=== PATIENT | male | born 1970 | race Caucasian/White ===

== ENCOUNTER 2022-10-16 08:56 | Outpatient (REF) | payer OTHER, SELFPAY ==
[2022-10-16 11:10] LABS: Blood Urea Nitrogen 19 mg/dL (9-16); Estimated Glomerular Filt Rate > 60
== END 2022-10-16 08:57 | disposition home or self-care (01) ==
LOC: HO.LAB 08:56
PROVIDERS: PCP Internal Medicine; Visit Provider Psychiatry & Neurology Neurology
DX: G45.9 Transient cerebral ischemic attack, unspecified (principal)
CPT/HCPCS: 36415; 82565; 84520

== ENCOUNTER 2023-01-09 09:12 | Outpatient (REF) | payer OTHER, SELFPAY ==
[2023-01-09 11:12] LABS: Blood Urea Nitrogen 14 mg/dL (9-16); Estimated Glomerular Filt Rate > 60
== END 2023-01-09 09:13 | disposition home or self-care (01) ==
LOC: HO.LAB 09:12
PROVIDERS: PCP Internal Medicine; Visit Provider Psychiatry & Neurology Neurology
DX: G45.9 Transient cerebral ischemic attack, unspecified (principal)
CPT/HCPCS: 36415; 82565; 84520

== ENCOUNTER 2023-02-06 08:00 | Outpatient (REF) | payer OTHER, SELFPAY ==
--- NOTE | ~2023-02-06 | CT_ITS ---
EXAMINATION: CT ANGIOGRAM HEAD AND NECK CLINICAL INFORMATION: 52-year-old with seizure. COMPARISON: None available. TECHNIQUE: Volumetric CT angiography of the head and neck was performed from the upper thorax to the skull vertex utilizing the bolus intravenous administration of 70 mL of Omnipaque 350 contrast material. 2D multiplanar reconstructions and 3D MIP renderings were performed either on an independent workstation or at the CT console workstation. Precontrast and delayed postcontrast CT imaging of the brain was also performed. The degree of stenosis determined by NASCET criteria. This CT examination was performed using dose optimization techniques as appropriate, variously including the following: *Automated exposure control *Adjustment of mA and/or kV according to patient size (this includes techniques or standardized protocols for targeted exams where dose is matched to indication/reason for exam; i.e. extremities or head) *Use of iterative reconstruction technique DLP: 3027 mGy-cm. FINDINGS: CTA CHEST/NECK: There is a normal three-vessel arch configuration, with normal caliber to the brachiocephalic vessels. There is poor visualization of the proximal vertebral arteries bilaterally due to artifacts and late bolus opacification of the arterial structures. The left vertebral artery is dominant. There is tortuosity of the proximal vertebral arteries bilaterally, which do not appear to be significantly focally stenotic within the limitations of the assessment. Throughout the remainder of the neck, the vertebral arteries demonstrate no significant focal stenosis or segmental occlusion, with a nondominant right vertebral artery. Right Carotid: Right CCA is smoothly contoured and normal in caliber. Tiny focus of calcified plaque within the proximal right ICA/carotid bulb with less than 50% diameter reduction stenosis by NASCET criteria. More distally, there is tortuosity of the cervical right ICA, which is otherwise patent and normal in caliber but not optimally evaluated due to suboptimal arterial opacification and artifacts from dental amalgam. The ECA is patent and normal in caliber. Left Carotid: Left CCA is patent, smoothly contoured and normal in caliber with a smoothly contoured appearance to the left carotid bifurcation with no significant plaque identified. The left cervical ICA is tortuous just below the skull base but is otherwise patent and normal in caliber with a patent, normal caliber left ECA. Dental amalgam artifact partially obscures a portion of the upper cervical left ICA. CTA HEAD: Limited assessment due to suboptimal arterial opacification. The intracranial ICAs demonstrate no significant focal stenosis or segmental occlusion. The A1 and A2 segments are patent and normal in caliber. The anterior communicating artery is not well visualized. The terminal ICAs appear within normal limits with a normal appearance to the M1 segments bilaterally, MCA bifurcations and visualized M2 branches. The left intradural vertebral artery is dominant and is smoothly contoured with normal caliber, with a relatively hypoplastic intradural right vertebral artery. The basilar artery is patent and normal in caliber. There is a origin of the right CL[employer]ICAL APPEALS REVIEWER with a hypoplastic right P1 segment. The left [employer] APPEALS REVIEWER appears within normal limits. Superior cerebellar arteries appear within normal limits. CT BRAIN IMAGES: Mild generalized diffuse supratentorial brain parenchymal volume loss is noted. Otherwise, the brain parenchyma is normal in morphology and attenuation, with intact emerson-white matter differentiation. No evidence for infarction, hemorrhage, extra-axial fluid collection, intracranial mass lesion, pathologic intracranial enhancement, space-occupying process or mass effect. The ventricular system and subarachnoid spaces are within normal limits without hydrocephalus. There is opacification of the major dural venous sinuses. The visualized orbital soft tissue structures appear relatively symmetric and unremarkable. The calvarium is intact. There is a probable cerumen plug in the left EAC. Otherwise, the visualized mastoids and middle ear cavities are unopacified. There is a 1 cm probable retention cyst along the inferior aspect of the right maxillary sinus with mild mucosal thickening inferior left maxillary sinus and some opacified ethmoid air cells bilaterally. CT NECK/CHEST SOFT TISSUES: Limited assessment. Prominence of the pharyngeal tonsils noted bilaterally, right more than left. Suggest correlation with direct visualization for asymmetric tonsillar hypertrophy. Scattered nonenlarged bilateral submandibular space and IJ chain lymph nodes. Normal appearance to the thyroid gland. Grossly unremarkable but limited assessment of the larynx. The visualized lung parenchyma demonstrates no acute process. Limited assessment. The visualized mediastinum demonstrates some lymph nodes which, are not pathologically enlarged in greatest short axis. SKELETAL: Grossly intact. Bilateral cervical facet arthropathy at C3-C4, right more than left. CT/CT angio head neck IMPRESSION: 1. Limited assessment due to suboptimal arterial opacification secondary to late bolus timing and artifact from dental amalgam. 2. No definite large vessel occlusion or significant focal stenosis and no evidence for intracranial arterial stenosis or occlusion. Given the limitations of the study, evaluation for small aneurysms and intra-arterial plaque is suboptimal on this study. If clinically warranted, repeat CT angiogram of the brain only may be of additional value. 3. Tiny focus of calcified plaque at the right carotid bulb with less than 50% diameter reduction stenosis by NASCET criteria. Widely patent carotid bifurcations bilaterally. Nondominant, partially hypoplastic right vertebral artery. Vertebral artery origins are poorly evaluated. 4. Mild generalized diffuse supratentorial brain parenchymal volume loss. No acute intracranial process. 5. Paranasal sinus mucosal inflammatory changes. 6. Prominence of the pharyngeal tonsils, right more than left. Recommend correlation with direct visualization to exclude asymmetric tonsillar hypertrophy.
[2023-02-06] MEDS: iohexoL 350 MG/ML 100 ML INFUS..BTL IV (09:07)
== END 2023-02-06 08:01 | disposition home or self-care (01) ==
LOC: HO.CT 08:00
PROVIDERS: PCP Internal Medicine; Visit Provider Psychiatry & Neurology Neurology
DX: R56.9 Unspecified convulsions (principal)
CPT/HCPCS: 70496; 70498; Q9967

== ENCOUNTER 2023-05-30 08:56 | Outpatient (REF) | payer OTHER, SELFPAY ==
[2023-05-30 10:44] LABS: Valproate 28.2 mcg/mL (50.0-100.0)
== END 2023-05-30 08:57 | disposition home or self-care (01) ==
LOC: HO.LAB 08:56
PROVIDERS: PCP Internal Medicine; Visit Provider Psychiatry & Neurology Neurology
DX: R56.9 Unspecified convulsions (principal)
CPT/HCPCS: 36415; 80164

== ENCOUNTER 2025-03-04 16:09 | Outpatient (AMB) | payer OTHER, SELFPAY ==
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
--- OUTSIDE RECORDS SUMMARY | 2025-03-04 18:05 | XMS_ITS | Clinical Summary ---
Author Organization [employer] Address [address] [place] [id number] Care Team Providers Care Digital Product Specialist Name Role Phone Gulshan Talavera MD Primary Care Provider [phone] Allergies No known active allergies Medications levETIRAcetam (Keppra) 500 mg tablet Take 2 tablets (1,000 mg total) by mouth 2 (two) times a day. 120 tablet 03/03/2022 Active Social History Tobacco Use Types Packs/Day Years Used Date Smoking Tobacco: Never Assessed Sex and Gender Information Value Date Recorded Sex Assigned at Not on file Legal Sex Male 3:57 PM EDT Gender Identity Not on file Sexual Orientation Not on file Last Filed Vital Signs Vital Sign Reading Time Taken Comments Blood Pressure 112/75 03/03/2022 4:30 PM EDT Pulse 106 03/03/2022 4:00 PM EDT Temperature 36.6 C (97.8 F) 03/03/2022 1:40 PM EDT Respiratory Rate 18 03/03/2022 4:30 PM EDT Oxygen Saturation 94% 03/03/2022 4:00 PM EDT Inhaled Oxygen Concentration - - Weight 145.2 kg (320 lb) 03/03/2022 1:40 PM EDT Height 180.3 cm (5' 11 ) 03/03/2022 1:40 PM EDT Body Mass Index 44.63 03/03/2022 1:40 PM EDT Plan of Treatment Health Maintenance Due Date Last Done Comments CT Colonography 1970 Colonoscopy 1970 Colorectal Cancer Screening 1970 FIT-DNA 1970 FIT 1970 FOBT 1970 Hepatitis C Screening 1970 Lipid Panel 1970 Sigmoidoscopy 1970 Ophthalmology Exam 02/08/1980 Hepatitis A Vaccines (1 of 2 - Risk 2-dose series) 1989 Pneumococcal Vaccine: 50+ Years (1 of 2 - PCV) 1989 Urine Protein Screening 1989 Annual Physical Exam 11/26/2014 11/26/2013 Zoster Vaccines (1 of 2) 02/08/2020 COVID-19 Vaccine (3 - 2024-2 6 season) 2025 01/24/2021, 12/27/2020 Influenza Vaccine (#1) 2025 Tdap and Td Vaccines Adult 03/10/2025 03/10/2015 HIB Vaccines Aged Out No longer eligi ble based on patient's age to complete this topic HPV Vaccines (No Doses Required) Completed IPV Vaccines Aged Out No longer eligi ble based on patient's age to complete this topic Meningococcal Vaccine Aged Out No joe cesar eligible based on patient's age to complete this topic RSV <20 Months Aged Out No longer chani gible based on patient's age to complete this topic Insurance [employer] Care Teams Digital Product Specialist Relationship Specialty Start Date End Date Gulshan Talavera MD PCP - General Internal Medicine 03/03/22
--- OUTSIDE RECORDS SUMMARY | 2025-03-04 18:05 | XMS_ITS | Encounter Summary ---
Author Organization [email or web address] Address [address] [place] [id number] Care Team Providers Care Ball Worker Name Role Phone Gulshan Talavera MD Primary Care Provider [phone] Encounter Details Date Type Department Care Team ([facility] Contact Info) Description 03/03/2022 Procedure Pass [facility] Radiology, [facility] (CT Scan) [address] [place] [id number] Social History Tobacco Use Types Packs/Day Years Used Date Smoking Tobacco: Never Assessed Sex and Gender Information Value Date Recorded Sex Assigned at Not on file Legal Sex Male 3:57 PM EDT Gender Identity Not on file Sexual Orientation Not on file documented as of this encounter Plan of Treatment Not on file documented as of this encounter Visit Diagnoses Not on filedocumented in this encounter Care Teams Ball Worker Relationship Specialty Start Date End Date Gulshan Talavera MD PCP - General Internal Medicine 03/03/22 documented as of this encounter
--- OUTSIDE RECORDS SUMMARY | 2025-03-04 18:05 | XMS_ITS | Clinical Summary ---
Author Organization [facility] Address [address] [place] [address] Phone Care Team Providers Care Bankruptcy Law Specialist Name Role Phone Gulshan Talavera MD Primary Care Provider [phone] Allergies Active Allergy Reactions Criticality Noted Date Comments Amlodipine Swelling High 10/09/2024 Medications UNABLE TO FIND Inhale 1 Device by mouth. CPAP - . [employer] pressure - Active divalproex (DEPAKOTE) [address] tablet Take 1 tablet (500 mg total) by mouth 3 (three) times a day. 4 Active FREESTYLE LANCETS MISC 1 EA by Other route 3 (three) times a day. 4 Active blood sugar diagnostic (FreeStyle Lite Strips) test strip 1 each by Other route 3 (three) times a day. 4 Active acetaminophen (TYLENOL) 500 mg tablet Take 2 tablets (1,000 mg total) by mouth every 8 (eight) hours if needed (pain). 60 tablet 4 Active semaglutide (Ozempic) 2 mg/dose (8 mg/3 mL) injection penIndications: Type 2 diabetes mellitus with diabetic microalbuminuri a, without long-term current use of insulin ([facility] V24, [facility] V28) Inject 2 mg under the skin every 7 (seven) days. 9 mL 3 5 Active folic acid (FOLVITE) 1 mg tablet TAKE 1 TABLET BY MOUTH DAILY. 90 tablet 1 5 Active albuterol HFA (PROAIR HFA ; PROVENTIL HFA ; VENTOLIN HFA) 90 mcg/actuation inhalerIndicati ons:Restrictive lung disease Inhale 2 puffs by mouth every 4 (four) hours if needed for wheezing or shortness of breath. 6.7 g 1 5 Active hydroCHLOROthia zide 12.5 mg tablet Take 1 tablet (12.5 mg total) by mouth 1 (one) time each day. 90 tablet 1 5 Active methadone HCl (METHADONE, BULK, MISC) 41 mg daily Active atorvastatin (LIPITOR) 20 mg tablet TAKE 1 TABLET BY MOUTH DAILY. 90 tablet 1 5 Active fluticasone propionate (FLONASE) 50 mcg/actuation nasal spray PLACE 1 SPRAY IN EACH NOSTRIL EVERY DAY 32 g 1 5 Active tamsulosin (FLOMAX) 0.4 mg 24 hr capsule Take 1 capsule (0.4 mg total) by mouth 1 (one) time each day. 5 Active metoprolol succinate (TOPROL-XL) 25 mg 24 hr tablet Take 1 tablet (25 mg total) by mouth 1 (one) time each day. 30 each 2 5 12/07/19 26 Active testosterone 1.62 % (20.25 mg/1.25 gram) gel in packetIndicatio ns:Hypogonadism in male APPLY 1 PACKET ONCE DAILY IN THE MORNING TO UPPER ARMS/SHOULDERS 37.5 g 3 5 Active tirzepatide (Mounjaro) 5 mg/0.5 mL injectionIndica tions:Type 2 diabetes mellitus with diabetic microalbuminuri a, without long-term current use of insulin ([facility] V24, [facility] V28) Inject 0.5 mL (5 mg total) under the skin every 7 (seven) days. This will replace ozempic. Please fill after 01/09 2 mL 1 5 Active Additional Information Patient not taking.Reported on 02/12/2025 lisinopril (PRINIVIL,ZESTR IL) 40 mg tablet TAKE 1 TABLET BY MOUTH EVERY DAY 90 tablet 5 Active montelukast (SINGULAIR) 10 mg tablet TAKE 1 TABLET BY MOUTH DAILY AT BEDTIME 90 tablet 2 5 Active Active Problems Problem Noted Date Diagnosed Date Type 2 diabetes mellitus wit h vascular disease ([facility] V24, [facility] V28) 07/14/2024 Overview (07/14/2024): ED Opiate dependence ([facility] V24, [facility] V28) 08/2024 Overview (07/14/2024): On methadone Hypogonadism in male 02/15/2023 Dyspnea on exertion 11/23/2022 Overview (03/24/2024): Last Assessment & Plan: Likely multifactorial due to restrictive lung disease due to morbid obesity, early COPD, and possibly, diastolic dysfunction. I will repeat a new echocardiogram. Type 2 diabetes mellitus wit h diabetic microalbuminuria, without long-term current use of insulin ([facility] V24, [facility] V28) 11/17/2022 Restrictive lung disease 04/26/2022 Overview (03/24/2024): Last Assessment & Plan: Patient has morbid obesity and secondary extrathoracic restriction. Given his strong history of smoking and that the last pulmonary function test was 2 years ago and that his dyspnea on exertion has increased I will repeat another PFT in 3 months when he come back to see me. Chronic sinusitis 02/03/2022 Overview (03/24/2024): Last Assessment & Plan: He has an upcoming appointment with ENT on May 2022. Pulmonary nodule 08/25/2020 Overview (03/24/2024): CT Chest Angiogram 08/03/20: Nonspecific 3 mm solid nodule in the lateral aspect of the right upper lobe. CT of the chest November 2019 showing stable nodules. Repeat 1 year ordered. Last Assessment & Plan: 53-year-old man longtime smoker and lung screening patient who presents with a new spiculated nodule measuring 7 mm perihilar in the left upper lobe. I did have a long discussion with him and his father about the findings on the CT scan compared with multiple previous CT scans. We also discussed pulmonary nodules in general and how their size, shape, and growth over time affect her level of suspicion for malignancy. This is of moderate suspicion due to its spiculated shape but really only 7 mm in size and it is new so technically not growth. I did however discuss options of observation versus needle biopsy versus surgery. After discussing risk benefits of these alternatives he opted for continued observation which is a 3-month follow- up screening CT and a visit in this office after that. Assessment & Plan (11/14/2024 3:12 PM EDT): 54-year-old man longtime smoker who smokes at least a half a pack per day since age 17 and been part of the lung cancer screening program since 2020. While in office we did discuss his most recent chest CT scan which was performed in October 2024 and showed that the 3 new pulmonary nodules seen on his last scan did resolve with several other small bilateral pulmonary nodules remaining unchanged. The previous noted patchy bandlike consolidation and groundglass opacities in the lower lobes have improved on the right and slightly more confluent on the left. Also noted with several healing right rib fractures and new irregular juxtapleural scarring in the subjacent right upper and middle lobe. He was educated that we would follow-up with a 6-month CT scan which will be due in April 2025. Assessment & Plan (07/31/2024 4:30 PM EST): 54-year-old male longtime current smoker who smokes at least half a pack per day since the age of 17 and has been part of the lung cancer screening program since 2020 and has been being followed for multiple waxing and waning pulmonary nodules. Most recent chest CT scan shows the patchy airspace infiltrates with nodularity seen previously in the right lung have resolved with new solid 6 mm juxtapleural right middle lobe nodule as well as new areas of airspace consolidation at the base of the lingula and both lower lobes which is most likely postinfectious or inflammatory. There is also resolution of nodular airspace infiltrates in the right lung described previously as well as several stable bilateral sub-5 mm pulmonary nodules throughout. Due to the findings listed above we will move forward with a repeat 3-month chest CT scan and have a visit at the thoracic surgery department thereafter to discuss results. Chest CT scan will be due in October 2024 and have a visit to thoracic surgery department thereafter to discuss results. Assessment & Plan (05/11/2024 1:45 PM EST): 54-year-old male longtime current smoker who smokes at least a half a pack per day since age of 17 and has been part of the lung cancer screening program since 2020 has been being followed for a spiculated 7 mm nodule in the left upper lobe. His most recent chest CT scan from April 2024 shows resolution of the left upper lobe in question consistent with an inflammatory/infectious process. There are now new scattered regions of nodularity as well as groundglass infiltrates that are more prominent in the right chest as well as a small region of consolidation noted in the periphery of the right lower lobe concerning for pneumonia. Upon physical exam I am able to appreciate crackles in the base of the right lower lobe. Will be treating him for community-acquired pneumonia with azithromycin and seeing him back in the thoracic surgical department in 3 months with a chest CT scan. Erectile dysfunction 03/15/2020 Venous stasis 08/21/2018 SADIQ (obstructive sleep apnea) 04/11/2018 Overview (03/24/2024): [facility] [place] Split Night Polysomnogram Date 11/04/2017 . SE 83 % SM 83 %. Without PAP: in REM for 0 % of this phase. AHI 127, Central apneas 0; Obstructive apneas 0; Mixed apneas 0; hypopneas 74; average oxygen saturation 83% (lowest 71%). With PAP: in REM for 37 % of this phase. On BiPAP @ 20/15; AHI 1.8 with oxygen saturation 92% on average. Last Assessment & Plan: Patient last sleep study in 2018 showed that he needed BiPAP. Given his cardiovascular history, morbid obesity and severity of his sleep disorder, and the fact that he is not using because he is not tolerating the machine, I will repeat another sleep study diagnostically to see if he needs a new machine with new parameters. Tobacco dependence 01/24/2018 Overview (03/24/2024): Last Assessment & Plan: Advised to quit smoking. He is trying but not able to do it. Morbid obesity with BMI of 4 5.0-49.9, adult (CMS/HCC V24, [facility] [place]28) 12/20/2017 Primary osteoarthritis of right knee 05/30/2017 Steatohepatitis 08/23/2016 GERD (gastroesophageal reflux disease) 5 Seasonal allergies 10/01/2014 HTN (hypertension) 06/12/2014 Resolved Problems Problem Noted Date Diagnosed Date Resolved Date Type 2 diabetes mellitus without complication 08/07/19 20 07/14/2024 Uncontrolled type 2 diabetes mellitus with hyperglycemia ([facility] [place]24, [facility] V28) 12/24/2018 07/14/2024 Obese 06/12/2014 07/14/2024 Encounters Date Type Department Care Team Description 02/12/2025 3:30 PM EDT Office Visit Adult Medicine [address] [phone] Gulshan Talavera MD Type 2 diabetes mellitus with diabetic microalbuminuria, without long-term current use of insulin ([facility] V24, [facility] V28) (Primary Dx); Primary hypertension; High cholesterol; Encounter for long-term (current) use of medications; Morbid obesity with BMI of 45.0-49.9, adult ([facility] V24, [facility] V28) 01/20/2025 Telephone Endocrinology [address] [phone] Kimber Mike PA 01/05/[address] [phone] Kimber Mike PA 12/11/2024 9:30 AM EDT Office Visit [address] [phone] Kimber Mike PA Type 2 diabetes mellitus with diabetic microalbuminuria, without long-term current use of insulin ([facility] V24, [facility] V28) (Primary Dx); Hypogonadism in male; Morbid obesity with BMI of 45.0-49.9, adult ([facility] V24, [facility] V28); Hypertension, unspecified type from Last 3 Months Immunizations Name Administration Dates Next Due Influenza Quadravalent, MDCK , 0.5ml, preservative free (Flucelvax) 6mo and older 04/26/2022 Tdap Tetanus diptheria acell ular pertussis (Boostrix; Adacel) 7yo and older 03/10/2015 Surgical History Surgery Date Site/Laterality Comments OTHER SURGICAL HISTORY PROCEDURE: DENIES PREVIOUS SURGERY Medical History Medical History Date Comments HTN (hypertension) 06/12/2014 DX:HTN (hyper tension) Obese 06/12/2014 DX:Obese GERD (gastroesophageal reflu x disease) 10/01/2014 DX:GERD (gastroesophageal re flux disease) Seasonal allergies 10/01/2014 DX:Seasonal a llergies Type 2 diabetes mellitus wit hout complications ([facility] V24, [facility] V28) 12/26/2023 DX:Type 2 diabetes mellitus without complications (HCC) Seizures ([facility] V24, [facility] V28) 12/26/2023 DX:Seizures (HCC) Family History Medical History Relation Name Comments Arthritis Father Hypertension Father Other cancer Father skin cancer Lung cancer Maternal Grandfather Blindness Neg Hx Cataracts Neg Hx Glaucoma Neg Hx Macular degeneration Neg Hx Strabismus Neg Hx Relation Name Status Comments Father Maternal Grandfather Social History Tobacco Use Types Packs/Day Years Used Date Smoking Tobacco: Every Day Cigarettes 1 40.1 Started: 1985 Smokeless Tobacco: Never Tobacco Cessation:Ready to Q uit: Not Asked; Counseling Given: Not Answered Alcohol Use Standard Drinks/Week Comments Yes 0 (1 standard drink = 0.6 oz pur e alcohol) Sex and Gender Information Value Date Recorded Sex Assigned at Not on file Legal Sex Male 11:46 PM EST Gender Identity Not on file Sexual Orientation Not on file Obstetrics History Last Filed Vital Signs Vital Sign Reading Time Taken Comments Blood Pressure 118/74 02/12/2025 3:24 PM EDT Pulse 84 02/12/2025 3:24 PM EDT Temperature 36.4 C (97.6 F) 02/12/2025 3:24 PM EDT Respiratory Rate 16 02/12/2025 3:24 PM EDT Oxygen Saturation 94% 02/12/2025 3:24 PM EDT Inhaled Oxygen Concentration - - Weight 151 kg (332 lb) 02/12/2025 3:24 PM EDT Height 181.6 cm (5' 11.5 ) 02/12/2025 3:24 PM ED T Body Mass Index 45.66 02/12/2025 3:24 PM EDT Plan of Treatment Upcoming Encounters Date Type Department Care Team (Late st Contact Info) Description 03/26/2025 4:00 PM EDT Consult Nephrology - [address] [phone] Farhad Joy MD [address] [phone] 06/16/2025 9:30 AM EST Office Visit Endocrinology - [address] [phone] Kimber Mike PA [address] [place] [address] 09/08/2025 8:30 AM EDT Office Visit [place] Medicine [place] - [address] [phone] Gulshan Talavera MD [address] [place], [place] Health Maintenance Due Date Last Done Comments Diabetes: Annual Foot Exam 02/08/1980 Diabetes: Annual Retina Eye Exam 02/08/1980 Hepatitis A Vaccines (1 of 2 - Risk 2-dose series) 1989 Hepatitis B Vaccines (1 of 3 - 19+ 3-dose series) 1989 Pneumococcal Vaccine: 50+ Years (1 of 2 - PCV) 1989 Zoster Vaccines (1 of 2) 02/08/2020 HIV Screening 05/20/2022 Social Influencers of Health Screening 05/20/2022 Depression Screening 06/11/2024 09/03/2023 Lung Cancer Screening (Low Dose CT) 12/02/2024 12/03/2023, 12/01/2023, 12/01/2022, Additional history exists COVID-19 Vaccine (3 - season) 2025 01/24/2021, 12/27/2020 Influenza Vaccine (#1) 2025 04/26/2022 Diabetes: Blood Sugar Control Test (HGBA1C) 06/11/2025 12/09/2024, 08/20/2024, 04/11/2024, Additional history exists Diabetes: Annual Urine Albumin-Creatinine Ratio (uACR) 02/12/2026 02/12/2025, 08/22/2024, 06/30/2016 Diabetes: Annual GFR (Glomerular Filtration Rate) 02/12/2026 02/12/2025, 08/22/2024, 04/11/2024, Additional history exists Hypertension/CHF/CAD Annual BMP Blood Test 02/12/2026 02/12/2025, 08/22/2024, 04/11/2024, Additional history exists Cholesterol Screening (Lipid Panel) 02/12/2030 02/12/2025, 08/22/2024, 04/11/2024, Additional history exists Colorectal Cancer Screening: Colonoscopy 04/18/2031 04/18/2021 DTaP,Tdap,and Td Vaccines (3 - Td or Tdap) 10/24/2031 10/23/2021, 03/10/2015 RSV Immunization Adult Patients (1 - 1-dose 75+ series) 2045 Hepatitis C Screening Completed 06/30/2016 HIB Vaccines Aged Out No longer eligi ble based on patient's age to complete this topic HPV Vaccines Aged Out No longer eligi ble based on patient's age to complete this topic IPV Vaccines Aged Out No longer eligi ble based on patient's age to complete this topic MMR Vaccines Aged Out No longer eligi ble based on patient's age to complete this topic Meningococcal ACWY Vaccine Aged Out N o longer eligible based on patient's age to complete this topic Meningococcal B Vaccine Aged Out No l onger eligible based on patient's age to complete this topic RSV Immunization Patients Under 20 months Aged Out No longer eligible based on patient's age to complete this topic Varicella Vaccines Aged Out No longer eligible based on patient's age to complete this topic Procedures Procedure Name Priority Date/Time Associated Diagnosis Comments LIPID PANEL WITH REFLEX TO DIRECT LDL Routine 02/12/2025 4:13 PM EDT High cholesterol COMPREHENSIVE METABOLIC PANEL Routine 02/12/2025 4:13 PM EDT Encounter for long-term (current) use of medications MICROALBUMIN CREATININE URINE RATIO Routine 02/12/2025 4:13 PM EDT Type 2 diabetes mellitus with diabetic microalbuminuria, without long-term current use of insulin ([facility] V24, [facility] V28) PSA TOTAL, FREE AND COMPLEXED, DIAGNOSTIC Routine 01/05/2025 9:03 AM EDT Benign prostatic hyperplasia with lower urinary tract symptoms POC GLUCOSE Routine 12/11/2024 9:44 AM EDT Type 2 diabetes mellitus with diabetic microalbuminuria, without long-term current use of insulin ([facility] V24, [facility] V28) HEMOGLOBIN A1C Routine 12/09/2024 11:39 AM EDT Type 2 diabetes mellitus with diabetic microalbuminuria, without long-term current use of insulin ([facility] V24, [facility] V28) CT LUNG SCREENING LOW DOSE Routine 12/03/2023 12:29 PM EDT Encounter for screening for malignant neoplasm of respiratory organs HM DEPRESSION SCREENING Routine 09/03/2023 COLONOSCOPY Routine 04/18/2021 HEPATITIS C SCREENING Routine 06/30/2016 from Last 3 Months or Most Recently Relevant to Health Maintenance Results * Lipid panel with reflex to direct LDL (02/12/2025 4:13 PM EDT) Cholesterol 122 0 - 200 mg/dL LAB CHEMISTRY METHOD 02/12/2025 6:55 PM EDT [facility] Triglycerides 132 0 - 150 mg/dL LAB CHEMISTRY METHOD 02/12/2025 6:55 PM EDT [facility] HDL 59 >=40 mg/dL LAB CHEMISTRY METHOD 02/12/2025 6:55 PM EDT [facility] LDL Calculated 37 0 - 100 mg/dL LAB CHEMISTRY METHOD 02/12/2025 6:55 PM EDT [facility] Comment:Estimated LDL Calcul ated using equation: Total cholesterol - HDL cholesterol - (Triglycerides/5) VLDL Cholesterol Curt 26.4 mg/dL LAB CHEMISTRY METHOD 02/12/2025 6:55 PM EDT [facility] Non HDL Chol. (LDL+VLDL) 63 <145 mg/dL LAB CHEMISTRY METHOD 02/12/2025 6:55 PM EDT [facility] Chol/HDL Ratio 2.1 0.0 - 4.4 LAB CHEMISTRY METHOD 02/12/2025 6:55 PM EDT [facility] Blood Venous blood specimen / Unknown Venipuncture / Unknown 02/12/2025 4:13 PM EDT 02/12/2025 4:13 PM EDT us Gulshan Talavera MD LAB BLOOD ORDERABLES Final Resu lt [facility] [address] [place] [address], * (ABNORMAL) Microalbumin creatinine urine ratio (02/12/2025 4:13 PM EDT) Creatinine, Urine 230.0 mg/dL LAB CHEMISTRY METHOD 02/12/2025 7:29 PM EDT [facility] Microalb, Ur 148.0(H) 0.0 - 29.0 mg/L LAB CHEMISTRY METHOD 02/12/2025 7:29 PM EDT [facility] Microalb/Crea t Ratio 64(H) <30 mg/g creat LAB CHEMISTRY METHOD 02/12/2025 7:29 PM EDT [facility] Urine Urine specimen obtained by clean catch procedure / Unknown Non-blood Collection / Unknown 02/12/2025 4:13 PM EDT 02/12/2025 4:13 PM EDT us Gulshan Talavera MD LAB URINE ORDERABLES Final Resu lt [facility] [address] [place] [address], * (ABNORMAL) Comprehensive metabolic panel (02/12/2025 4:13 PM EDT) Sodium 136 133 - 145 mmol/L LAB CHEMISTRY METHOD 02/12/2025 6:55 PM EDT [facility] Potassium 4.0 3.5 - 5.5 mmol/L LAB CHEMISTRY METHOD 02/12/2025 6:55 PM [facility] Chloride 98 96 - 110 mmol/L LAB CHEMISTRY METHOD 02/12/2025 6:55 PM [facility] CO2 33(H) 21 - 32 mmol/L LAB CHEMISTRY METHOD 02/12/2025 6:55 PM [facility] Anion Gap 5 3 - 11 LAB CHEMISTRY METHOD [facility] Glucose 95 70 - 100 mg/dL LAB CHEMISTRY METHOD 02/12/2025 6:55 PM [facility] BUN 19 5 - 25 mg/dL LAB CHEMISTRY METHOD 02/12/2025 6:55 PM [facility] Creatinine 0.78 0.70 - 1.30 mg/dL LAB CHEMISTRY METHOD 02/12[facility]2025 6[facility] eGFR 105 >=60 mL/min/1. 73m2 LAB CHEMISTRY METHOD 02/12/2025 6:55 PM [facility] Comment:Calculation based on the Chronic Kidney Disease Epidemiology Collaboration (CKD-EPI) equation refit without adjustment for race. BUN/Creatinine Ratio 24.4 LAB CHEMISTRY METHOD 02/12/2025 6:55 PM [facility] Calcium 9.3 8.5 - 10.5 mg/dL LAB CHEMISTRY METHOD 02/12/2025 6:55 PM EDT [facility] AST (SGOT) 31 10 - 42 unit/L LAB CHEMISTRY METHOD 02/12/2025 6:55 PM EDT [facility] ALT (SGPT) 32 10 - 60 unit/L LAB CHEMISTRY METHOD 02/12/2025 6:55 PM EDT [facility] Alkaline Phosphatase 67 42 - 121 unit/L LAB CHEMISTRY METHOD 02/12/2025 6:55 PM EDT [facility] Total Protein 7.3 6.0 - 8.0 g/dL LAB CHEMISTRY METHOD 02/12/2025 6:55 PM EDT [facility] Albumin 3.5 3.2 - 5.0 g/dL LAB CHEMISTRY METHOD 02/12/2025 6:55 [facility] Total Bilirubin 0.6 0.0 - 1.4 mg/dL LAB CHEMISTRY METHOD 02/12/2025 6:55 PM EDT [facility] Blood Venous blood specimen / Unknown Venipuncture / Unknown 02/12/2025 4:13 PM EDT 02/12/2025 4:13 PM EDT us Gulshan Talavera MD LAB BLOOD ORDERABLES Final Resu lt [facility] [address] [place] [address], * PSA total, free and complexed (01/05/2025 9:03 AM EDT) PSA 0.39 0.00 - 4.00 ng/mL LAB CHEMISTRY METHOD 01/05/2025 3:28 PM [facility] PSA, Complexed 0.14 0.00 - 3.00 ng/mL LAB CHEMISTRY METHOD 01/05/2025 3:28 PM [facility] PSA, Free 0.3 ng/mL LAB CHEMISTRY METHOD 01/05/2025 3:28 PM EDT [facility] PSA, Free Pct 76.9 >25.0 % LAB CHEMISTRY METHOD 01/05/2025 3:28 PM EDT [facility] Blood Venous blood specimen / Unknown Venipuncture / Unknown 01/05/2025 9:03 AM EDT 01/05/2025 9:03 AM EDT Narrative [facility] - 01/05/2025 3:28 PM EDT Free PSA is a calculated value. The diagnostic usefulness of % free PSA has not been established in patients with Total PSA below 2.6 or above 10 ng/mL. This test was performed using the [employer]aur Chemiluminescent method. PSA values obtained with other methods cannot be used interchangeably. Urbano Hays MD LAB BLOOD ORDERABLES Final Result [facility] [address] [place] [address], [place] [phone] * POC glucose manually resulted (12/11/2024 9:44 AM EDT) Glucose POC 160 mg/dL Comment:Non fasting Blood Capillary blood specimen / Unknown 12/11/2024 9:44 AM EDT Kimber [id number] POINT OF CARE TEST ENTER/ED IT ORDERABLES Final Result * Hemoglobin A1c (12/09/2024 11:39 AM EDT) Hemoglobin A1C 6.4 <6.5 % LAB CHEMISTRY METHOD 12/09/2024 9:53 PM EDT [facility] Mean Bld Glu Estim. 137 mg/dL LAB CHEMISTRY METHOD 12/09/2024 9:53 PM EDT [facility] Blood Venous blood specimen / Unknown Venipuncture / Unknown 12/09/2024 11:39 AM EDT 12/09/2024 11:39 AM EDT us Kimber AMEZCUA LAB BLOOD ORDERABLES Final Result [facility] H[facility] LAB [address] [place] [address], [place] [phone] * CT LUNG SCREENING LOW DOSE (12/03/2023 12:29 PM EDT) Anatomical Region Laterality Modality Computed Tomogra phy 12/01/2023 8:01 AM EDT Narrative 12/03/2023 12:29 PM EDT [facility] Diagnostic Imaging Department [address] [place] [address] Patient: REFGUIO POWELL./Age/Sex: 1970 - 53 - M Unit#: [id number] Location/Status: SPDICATLS/REG CLI Mnemonic/Ordering Site: [facility] [[email or web address]] Ordering Physician: SHAHIDA MORENO MD CT Lung Screening Low Dose - 12/01/23 - 809 Report Status:Signed Chest CT, 12/03/2023 12:01 PM. TECHNIQUE: Low-dose CT of the chest without intravenous contrast administration. Coronal and sagittal reformats and MIP reconstructions were created. Dose length product: 165 mGy-cm. HISTORY: LOW DOSE LUNG CA SCREENING COMPARISON: 11/28/2022. FINDINGS: Lungs/pleura: Minimal aspirated debris in the trachea and right mainstem bronchus. Mild bronchial wall thickening in both lower lobes. New patchy linear and groundglass nodular opacities at both lung bases suggesting small airways mucus plugging and atelectasis and/or scarring. Mild centrilobular emphysema. Stable small focus of scarring in the inferior right upper lobe. Calcified granuloma in the posterior right lower lobe. There is a new spiculated 7 mm nodule in the perihilar left upper lobe (series 3, image 102). Stable scattered small pulmonary nodules. The largest are as follows: 4 mm nodule in the posterior right upper lobe, series 3 image 71. 3 mm nodule in the inferior right upper lobe, series 3 image 114. 5 mm peribronchial vascular nodule in the anterior right hilar region, series 3 image 125. 5 mm triangular nodule abutting the right major fissure, series 3 image 126. 4 mm nodule in the anterolateral right lower lobe, series 3 image 148. Mediastinum/denis: No mass or lymphadenopathy. Vasculature: Normal. Cardiac: Mild coronary artery calcification. Normal heart size. Chest wall: Mild gynecomastia. No lymphadenopathy. Limited abdomen: Unremarkable. Bones: Mild degenerative changes of the spine. Remote healed left rib fractures. IMPRESSION: 1. Lung RADS 4A. New 7 mm spiculated nodule in the central left upper lobe. A follow-up low-dose CT is recommended in 3 months. 2. New patchy groundglass nodularity at both lung bases suggestive of a small airways infectious or inflammatory process. Dictating Physician: DENNIS MERA MD Electronically Signed by: DENNIS MERA MD Dic Date/Time: 12/03/23 1201 Sign date/Time: 12/03/23 1229 Procedure Note Dennis Mera MD - 03/26/2024 [facility] Diagnostic Imaging Department [address] [place] [address] Patient: REFUGIO POWELL /Age/Sex: 1970 - 53 - M Unit#: [id number] Location/Status: [facility] CLI Mnemonic/Ordering Site: [facility] [[email or web address]] Ordering Physician: SHAHIDA MORENO MD CT Lung Screening Low Dose - 12/01/23809 Report Status:Signed Chest CT, 12/03/2023 12:01 PM. TECHNIQUE: Low-dose CT of the chest without intravenous contrast administration. Coronal and sagittal reformats and MIP reconstructionswere created. Dose length product: 165 mGy-cm. HISTORY: LOW DOSE LUNG CA SCREENING COMPARISON: 11/28/2022. FINDINGS: Lungs/pleura: Minimal aspirated debris in the trachea and right mainstem bronchus. Mild bronchial wall thickening in both lower lobes. Newpatchy linear and groundglass nodular opacities at both lung bases suggestingsmall airways mucus plugging and atelectasis and/or scarring. Mildcentrilobular emphysema. Stable small focus of scarring in the inferior right upperlobe. Calcified granuloma in the posterior right lower lobe. There is a new spiculated 7 mm nodule in the perihilar left upper lobe(series 3, image 102). Stable scattered small pulmonary nodules. The largest are as follows: 4 mm nodule in the posterior right upper lobe, series 3 image 71. 3 mm nodule in the inferior right upper lobe, series 3 image 114. 5 mm peribronchial vascular nodule in the anterior right hilar region,series 3 image 125. 5 mm triangular nodule abutting the right major fissure, series 3 [id number]. 4 mm nodule in the anterolateral right lower lobe, series 3 image 148. Mediastinum/denis: No mass or lymphadenopathy. Vasculature: Normal. Cardiac: Mild coronary artery calcification. Normal heart size. Chest wall: Mild gynecomastia. No lymphadenopathy. Limited abdomen: Unremarkable. Bones: Mild degenerative changes of the spine. Remote healed left rib fractures. IMPRESSION: 1. Lung RADS 4A. New 7 mm spiculated nodule in the central left upperlobe. A follow-up low-dose CT is recommended in 3 months. 2. New patchy groundglass nodularity at both lung bases suggestive of asmall airways infectious or inflammatory process. Dictating Physician: DENNIS MERA MD Electronically Signed by: DENNIS MERA MD Dic Date/Time: 12/03/23 1201 Sign date/Time: 12/03/23 1229 Result [facility] Shahida Moreno MD IMG CT PROCEDURES Final Result * Depression Screening (09/03/2023) Depression Screening abstracted Historical Provider HEALTH MAINTENANCE Final Result * Colonoscopy (04/18/2021) Colonoscopy no interpretation , abstracted Anatomical Region Laterality Modality Other Result [facility] Historical Provider HEALTH MAINTENANCE Final Result * Hepatitis C Screening (06/30/2016) Hepatitis C Screening abstracted Result [facility] Historical Provider HEALTH MAINTENANCE Final Result from Last 3 Months or Most Recently Relevant to Health Maintenance Insurance [facility] Care Teams Bankruptcy Law Specialist Relationship Specialty Start Date End Date Gulshan Talavera MD [address] [place] [phone] PCP - General Internal Medicine 04/15/24
--- OUTSIDE RECORDS SUMMARY | 2025-03-04 18:05 | XMS_ITS ---
Author Name [facility] Organization Unknown Encounters Encounter Type Encounter Reason Primary Diagnosis Location Date Emergency Unspecified convulsions [facility] 03/03/2022 Care Team Organization Name Specialty Phone Email Start Date End Da te [facility] RUDDY BRUNILDA Primary Care 04/18/2022 [facility] 03/03/202202/10 [facility] 03/03/2022
--- OUTSIDE RECORDS SUMMARY | 2025-03-04 18:05 | XMS_ITS | Clinical Summary ---
Author Organization [facility] Address [address] [place] [address] Care Team Providers [employer] Name Role Phone Gulshan Talavera MD Primary Care Provider [phone] Allergies No known active allergies Medications Medication Sig Dispensed Refills Start Date End Date Status enoxaparin (LOVENOX) 150 MG/ML injection Inject under the skin every 12 (twelve) hours. 0 Active Testosterone 40.5 MG/2.5GM (1.62%) GEL Place onto the skin. 0 Active dulaglutide (Trulicity) 3 MG/0.5ML subcutaneous pen-injector Inject under the skin. 0 Active lisinopril (PRINIVIL,ZESTRIL) tablet 30 mg Take 1 tablet (30 mg total) by mouth daily. 0 Active atorvastatin (LIPITOR) tablet 20 mg Take 1 tablet (20 mg total) by mouth daily. 0 Active Meloxicam 7.5 MG TBDP Take by mouth. 0 Active Albuterol Sulfate 108 (90 Base) MCG/ACT AEPB Inhale into the lungs. 0 Active folic acid (FOLVITE) tablet 1 mg Take 1 tablet (1 mg total) by mouth daily. 0 Active Active Problems Problem Noted Date Diagnosed Date Acute pulmonary embolism without acute cor pulmo nale 07/22/2022 Social History Tobacco Use Types Packs/Day Years Used Date Smoking Tobacco: Never Assessed Sex and Gender Information Value Date Recorded Sex Assigned at Male 04/25/2021 3:22 PM EST Gender Identity Not on file Sexual Orientation Not on file Job Start Date Occupation Industry Not on file Not on file Not on file Last Filed Vital Signs Vital Sign Reading Time Taken Comments Blood Pressure 130/78 11/20/2022 9:17 AM EDT Pulse 78 11/20/2022 9:17 AM EDT Temperature 37.2 C (98.9 F) 11/20/2022 9:17 AM EDT Respiratory Rate - - Oxygen Saturation 96% 11/20/2022 9:17 AM EDT Inhaled Oxygen Concentration - - Weight 149.2 kg (329 lb) 11/20/2022 9:17 AM EDT Height 181.6 cm (5' 11.5 ) 11/20/2022 9:17 AM ED T Body Mass Index 45.25 11/20/2022 9:17 AM EDT Plan of Treatment Health Maintenance Due Date Last Done Comments Hepatitis B Vaccines (1 of 3 - 3-dose series) 1970 Hepatitis C Screening 1970 Depression Screening 1982 Preventative Health Evaluation 02/08/1988 Colon Cancer Screening (Colonoscopy) 2015 Shingrix-Zoster Vaccine (1 o f 2) 02/08/2020 COVID-19 Vaccine (3 - 2024-2 6 season) 2025 01/24/2021, 12/27/2020 Influenza Vaccine (#1) 2025 04/26/2022 DTap / Tdap / Td (3 - Td or Tdap) 10/24/2031 10/23/2021, 03/10/2015 Pneumococcal Vaccine Aged Out No long er eligible based on patient's age to complete this topic RSV Ped < 20 months Aged Out No longe r eligible based on patient's age to complete this topic Care Teams [employer] Art [employer] Relationship Specialty Start Date End Date Gulshan Talavera MD PCP - General Internal Medicine 05/31/22
== END 2025-03-04 16:28 | disposition home or self-care (01) ==
LOC: HO.HSM 16:10
PROVIDERS: PCP Internal Medicine; Referring Provider Internal Medicine; Visit Provider Registered Nurse
DX: R56.9 Unspecified convulsions (principal)
CPT/HCPCS: 99214

== ENCOUNTER → 2025-03-04 16:09 | Outpatient (BNVA) | payer OTHER, SELFPAY | PROVIDERS: PCP Internal Medicine; Referring Provider Internal Medicine; Visit Provider Registered Nurse | DX: R56.9 Unspecified convulsions (principal); Z79.899 Other long term (current) drug therapy | CPT/HCPCS: 99212 ==